=== PATIENT | female | born 1970 | race Caucasian/White ===

== ENCOUNTER 2018-04-10 06:26 | Emergency (ER) | payer BC ==
[2018-04-10 06:40] VITALS: BP 162/109
[2018-04-10] MEDS ORDERED: hydrALAZINE 20 MG/ML SDV IVPUSH ONE (06:48)
[2018-04-10] MEDS ORDERED: Sodium Chloride 0.9% 1,000 ML IV ONE (06:52)
--- NOTE | 2018-04-10 06:54 | EDM.PDOC ---
<Charleen Monge - Last Filed: 04/10/18 06:54> ED HPI GENERAL MEDICAL PROBLEM - General Chief Complaint: Headache Stated Complaint: LIGHT HEADED [id number] Time Seen by Provider: 04/10/18 06:35 Source of Information: Reports: Patient History Limitations: Reports: No Limitations - History of Present Illness INITIAL COMMENTS - FREE TEXT/NARRATIVE: ED with c/o for dizziness, tingling all over body at times. No weakness, fever or chills. Symptoms intermittent, in waves. No nausea vomiting or diarrhea. No headache SOB or chest pain. No sensation of heart racing or missed beats. Denies hx of cardiac events, diabetes, HTN. Did not eat breakfast but not unusual to not eat breakfast. 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 Headache Pain Score (Numeric/FACES): 2 - Related Data Allergies Allergy/AdvReac Type Severity Reaction Status Date / Time chlorpheniramine Allergy Anaphylactic Verified 10/19/15 07:23 [From Tylenol Sinus Shock Congestion Pain] guaifenesin Allergy Anaphylactic Verified 10/19/15 07:23 [From Tylenol Sinus Shock Congestion Pain] meloxicam Allergy Tachycardia Verified 04/10/18 06:41 phenylephrine Allergy Anaphylactic Verified 10/19/15 07:23 [From Tylenol Sinus Shock Congestion Pain] Home Meds: Home Meds Acetaminophen [Tylenol Extra Strength] 1,000 mg PO 04/10/18 [History] Ibuprofen 600 04/10/18 [History] Past Medical History - Past Health History Medical/Surgical History: Denies Medical/Surgical History Social & Family History - Family History Family Medical History: Noncontributory - Living Situation & Occupation Living situation: Reports: with Family Occupation: Employed ED ROS GENERAL - Review of Systems Review Of Systems: ROS reveals no pertinent complaints other than HPI. ED EXAM, NEURO - Physical Exam Exam: See Below Exam Limited By: No Limitations General Appearance: Alert, Anxious Eye Exam: Bilateral Eye: EOMI, PERRL Ears: Normal External Exam, Normal TMs Nose: Normal Inspection, Normal Mucosa Throat/Mouth: Normal Inspection, Normal Lips, Normal Voice Head Exam: Atraumatic, Normocephalic Neck: Normal Inspection, Supple, Full Range of Motion. No: Lymphadenopathy (L) , Lymphadenopathy (R) Respiratory/Chest: No Respiratory Distress, Lungs Clear, Normal Breath Sounds Cardiovascular: Normal Peripheral Pulses, Regular Rate, Rhythm, No Edema GI/Abdominal: Normal Bowel Sounds, Soft, Other (round) Neurological: Alert, CN II-XII Intact, Normal Plantar Flexion, Normal Gait, No Motor/Sensory Deficits, Oriented x 3 Back Exam: Normal Inspection. No: CVA Tenderness (R) Extremities: Normal Inspection. No: Pedal Edema Psychiatric: Normal Affect, Anxious Skin Exam: Warm, Dry, Intact, Normal Color Course - Vital Signs Last Recorded V/S: Last Vital Signs Temp 36.5 C 04/10/18 06:34 Pulse 84 04/10/18 06:34 Resp 16 04/10/18 06:34 BP 162/109 H 04/10/18 06:34 Pulse Ox 100 04/10/18 06:34 - Orders/Labs/Meds Orders: Active Orders 24 hr Category Date Time Status EKG Documentation Completion [RC] URGENT Care 04/10/18 06:37 Active Labs: Laboratory Tests 04/10/18 04/10/18 04/10/18 Range/Units 06:36 06:36 07:13 WBC 6.5 (5.0-10.0) 10^3/uL RBC 5.04 (4.2-5.4) 10^6/uL Hgb 15.2 (12.0-16.0) g/dL Hct 43.6 (37.0-47.0) % MCV 86.5 (80-100) fL MCH 30.2 (27.0-34.0) pg MCHC 34.9 (33.0-35.0) g/dL Plt Count 262 (150-450) 10^3/uL Neut % (Auto) 51.2 (42.2-75.2) % Lymph % (Auto) 34.2 (20.5-50.1) % Baxter % (Auto) 9.8 H (2-8) % Eos % (Auto) 4.3 H (1.0-3.0) % Baso % (Auto) 0.5 (0.0-1.0) % Sodium 131 L (135-145) mmol/L Potassium 3.6 (3.6-5.0) mmol/L Chloride 96 L (101-111) mmol/L Carbon Dioxide 24.0 (21.0-31.0) mmol/L Anion Gap 14.6 BUN 14 (7-18) mg/dL Creatinine 0.7 (0.6-1.3) mg/dL Est Cr Clr Drug Dosing 107.44 mL/min Estimated GFR (MDRD) > 60 BUN/Creatinine Ratio 20.00 Glucose 103 (74-105) mg/dL Calcium 8.7 (8.4-10.2) mg/dl Magnesium 1.9 (1.8-2.5) mg/dL Total Bilirubin 0.9 (0.2-1.0) mg/dL AST 20 (10-42) IU/L ALT 29 (10-60) IU/L Alkaline Phosphatase 52 (42-121) IU/L Troponin I < 0.02 (0.00-0.02) ng/ml Total Protein 7.5 (6.7-8.2) g/dl Albumin 4.2 (3.2-5.5) g/dl Globulin 3.3 Albumin/Globulin Ratio 1.27 Amylase 49 (28-100) U/L Lipase 25 (22-51) U/L Urine Color Light yellow (YELLOW) Urine Appearance Clear (CLEAR) Urine pH 6.0 (5.0-9.0) Ur Specific [place] <= 1.005 (1.005-1.030) Urine Protein Negative (NEGATIVE) Urine Glucose (UA) Negative (NEGATIVE) Urine Ketones Negative (NEGATIVE) Urine Occult Blood Negative (NEGATIVE) Urine Nitrite Negative (NEGATIVE) Urine Bilirubin Negative (NEGATIVE) Urine Urobilinogen 0.2 (0.2-1.0) mg/dL Ur Leukocyte Esterase Negative (NEGATIVE) Ethyl Alcohol < 5 mg/dL Meds: Medications Discontinued Medications Generic Name Dose Route Start Last Admin Trade Name Freq PRN Reason Stop Dose Admin Hydralazine HCl 10 mg 04/10/18 06:48 04/10/18 07:12 Apresoline IVPUSH 04/10/18 06:49 10 mg ONETIME ONE Administration Sodium Chloride 1,000 mls @ 250 mls/hr 04/10/18 06:52 04/10/18 07:01 Normal Saline IV 04/10/18 10:51 250 mls/hr .BOLUS ONE Administration Lorazepam 0.5 mg 04/10/18 08:36 Ativan IVPUSH 04/10/18 08:37 ONETIME ONE Departure - Departure Disposition: Home, Self-Care 01 Clinical Impression: Dizziness, Anxiety - Discharge Information Instructions: Panic Attack, [id number], Dizziness, [id number] Referrals: PCP,None [Primary Care Provider] - Forms: ED Department Discharge Additional Instructions: Home rest today. Lorazepam, 1 tablet two times a day as needed for symptoms of anxiety. Caution sedation. RX to patient #8. Make sure and get good rest and have good sleep hygiene. Consider counseling if continued problems. Return to the ED if new or worsening symptoms. <Mumtaz Paulino - Last Filed: 04/10/18 10:08> Course - Re-Assessments/Exams Free Text/Narrative Re-Assessment/Exam: 04/10/18 09:56 Assumed care of this patient at [address] scan of the head is negative per radiology for no evidence of acute intracranial abnormality. I reviewed her EKG as well which is normal sinus rhythm without any ST elevation or depression when reviewed extemporaneously by myself. Her laboratory evaluation is rather unremarkable. I went back in and examine the patient in a really wonder if this is not anxiety related as she has very fast pressured speech. Her thought process is somewhat over the place. There is no confusion hallucinations or delusions. She is really appears very anxious. There is a fine tremor noted to her extremities. She does have a history of anxiety and she does relay that recently she has been struggling quite heavily with quite a bit family and work stress. Her neurological exam is rather unremarkable. I would like to try some Ativan although she would prefer to try at home she doesn't know how she would get home otherwise. I reassured her that her workup today is rather unremarkable and this really is anxiety most likely. She is comfortable with this plan and her questions are answered. 04/10/18 10:07 Departure - Departure Time of Disposition: 09:17 - Assessment/Plan Assessment:: Dizziness most likely anxiety. Anxiety. Plan: Home rest today. Lorazepam, 1 tablet two times a day as needed for symptoms of anxiety. Caution sedation. RX to patient #8. Make sure and get good rest and have good sleep hygiene. Consider counseling if continued problems. Return to the ED if new or worsening symptoms.
[2018-04-10 07:03] LABS: ANION GAP 14.6; CHLORIDE,CL 96 mmol/L (101-111); SODIUM,NA 131 mmol/L (135-145)
[2018-04-10] MEDS ORDERED: LORazepam 2 MG/ML Syringe IVPUSH ONE (08:36)
== END 2018-04-10 09:25 | disposition home or self-care (01) ==
LOC: DL.ED 06:26
DX: F41.9 Anxiety disorder, unspecified (principal); R42 Dizziness and giddiness; Z88.8 Allergy status to other drugs, medicaments and biological substances
CPT/HCPCS: 36415; 70450; 80053; 81003; 82150; 83690; 83735; 84484; 85025; 93005; 96365; 96375; 99284; G0480; J0360; J7030

== ENCOUNTER 2021-06-02 12:10 | Emergency (ER) | payer BC ==
[2021-06-02 12:24] VITALS: BP 146/94; PULSE 80
[2021-06-02 13:02] LABS: CHLORIDE,CL 101 mmol/L (98-107); SODIUM,NA 139 mmol/L (136-145)
[2021-06-02] MEDS ORDERED: Acetaminophen 500 MG Tab PO ONE (14:03)
[2021-06-02] MEDS ORDERED: Ketorolac 30 MG/ML SDV IVPUSH ONE (15:00)
== END 2021-06-02 15:13 | disposition home or self-care (01) ==
LOC: DL.ED 12:10
DX: R07.89 Other chest pain (principal); I10 Essential (primary) hypertension
CPT/HCPCS: 36415; 71045; 80053; 83605; 84484; 85025; 85379; 93010; 96374; 99284; 99285-25; A9270-GY; J1885

== ENCOUNTER 2023-03-30 14:58 | Emergency (ER) | payer BC ==
[2023-03-30 15:07] VITALS: BP 154/101; PULSE 89
[2023-03-30] MEDS: methylPREDNISolone Sodium Succinate 125 MG/2 ML SDV IM ONE (15:11)
[2023-03-30] MEDS: diphenhydrAMINE 50 MG Cap PO ONE (15:11)
== END 2023-03-30 16:24 | disposition home or self-care (01) ==
LOC: DL.ED 14:58
DX: T78.3XXA Angioneurotic edema, initial encounter (principal); I10 Essential (primary) hypertension; J45.909 Unspecified asthma, uncomplicated; Z79.899 Other long term (current) drug therapy; Z88.8 Allergy status to other drugs, medicaments and biological substances
CPT/HCPCS: 96372; 99282; 99283; J2930; Q0163